=== PATIENT | male | born 2000 | race Caucasian/White ===

== ENCOUNTER 2022-11-01 14:54 | Emergency (ER) | payer BC ==
[~2022-11-01] VITALS: Ht 177.8 cm; Wt 74.8 kg
[2022-11-01 15:04] VITALS: BP 147/73
--- NOTE | 2022-11-01 15:06 | NUR ---
PT SWABBED FOR COVID AND FLU. AMBULATED TO [facility]
--- NOTE | 2022-11-01 15:10 | NUR ---
22/M WALKED IN C/O COUGH ONSET 4 DAYS. PT REPORTS FEVER AND BODY ACHE THAT GOT BETTER ONSET 1 WK. AFEBRILE AT TRIAGE. AAO4, AMBULATORY, VITALS STABLE PMH: DENIES
[2022-11-01] MEDS ORDERED: BPM/118S31 PO (16:12)
[2022-11-01] MEDS ORDERED: DEXAMETHASONE 10 MG/ML VIAL IM ONE (16:20)
== END 2022-11-01 16:30 | disposition home or self-care (01) ==
LOC: MED 14:54
DX: J20.9 Acute bronchitis, unspecified (principal); Z20.822 Contact with and (suspected) exposure to COVID-19; Z79.899 Other long term (current) drug therapy
CPT/HCPCS: 71045; 87426; 87804; 96372; 99284; J1100